=== PATIENT | female | born 1955 | race Caucasian/White ===

== ENCOUNTER 2018-05-14 23:44 | Emergency (ER) | payer OTHER ==
[~2018-05-14] VITALS: Ht 162.6 cm; Wt 80.9 kg
[~2018-05-14 23:44] MED LIST: CIPRO500 MG PO; FLAGYL500 MG PO
[2018-05-15] MEDS ORDERED: FLEXERIL10 MG PO (01:29)
[2018-05-15 01:30] VITALS: BP 127/51
== END 2018-05-15 01:53 | disposition home or self-care (01) ==
LOC: EME 23:44
DX: S30.0XXA Contusion of lower back and pelvis, initial encounter (principal); W01.0XXA Fall on same level from slipping, tripping and stumbling without subsequent striking against object, initial encounter; Y93.E2 Activity, laundry; Y92.009 Unspecified place in unspecified non-institutional (private) residence as the place of occurrence of the external cause; Z90.710 Acquired absence of both cervix and uterus
CPT/HCPCS: 72100; 72170; 99281; 99284; J1885